=== PATIENT | male | born 1990 | race Caucasian/White ===

== ENCOUNTER 2018-05-27 07:07 | Outpatient (CLI) | payer OTHER | END 2018-05-27 07:11 | disposition home or self-care (01) | LOC: RAD 07:07 | DX: J32.8 Other chronic sinusitis (principal) ==

== ENCOUNTER 2018-12-29 20:02 | Emergency (ER) | payer OTHER ==
[~2018-12-29] VITALS: Ht 175.3 cm; Wt 73.5 kg
[2018-12-29] MEDS ORDERED: SINGULAIR 4MG4 MG (20:12)
== END 2018-12-30 00:21 | disposition home or self-care (01) ==
LOC: ER 20:02
DX: S82.091A Other fracture of right patella, initial encounter for closed fracture (principal); W18.39XA Other fall on same level, initial encounter; Y93.89 Activity, other specified; Y92.89 Other specified places as the place of occurrence of the external cause; Y99.8 Other external cause status

== ENCOUNTER 2018-12-30 12:25 | Outpatient (CLI) | payer OTHER ==
[~2018-12-30 12:25] MED LIST: SINGULAIR 4MG4 MG
== END 2018-12-30 12:40 | disposition home or self-care (01) ==
LOC: MRI 12:25
DX: M25.561 Pain in right knee (principal)
CPT/HCPCS: 73721

== ENCOUNTER 2019-01-02 11:42 | Outpatient (CLI) | payer OTHER | END 2019-01-02 13:11 | disposition home or self-care (01) | LOC: LAB 11:42 | DX: D64.89 Other specified anemias (principal); E88.89 Other specified metabolic disorders; D68.8 Other specified coagulation defects; N39.0 Urinary tract infection, site not specified; Z22.322 Carrier or suspected carrier of Methicillin resistant Staphylococcus aureus; I49.8 Other specified cardiac arrhythmias; Z76.89 Persons encountering health services in other specified circumstances ==

== ENCOUNTER 2019-01-10 10:23 | Day surgery (SDC) | payer OTHER | END 2019-01-11 06:15 | disposition home or self-care (01) | LOC: CIR.AMB 10:23 | DX: S83.511A Sprain of anterior cruciate ligament of right knee, initial encounter (principal); M23.351 Other meniscus derangements, posterior horn of lateral meniscus, right knee; M23.41 Loose body in knee, right knee; M65.861 Other synovitis and tenosynovitis, right lower leg ==

== ENCOUNTER → 2019-12-02 | Outpatient (CLI) | payer OTHER | END | disposition home or self-care (01) | LOC: RAD 10:56 | DX: S83.511D Sprain of anterior cruciate ligament of right knee, subsequent encounter (principal) ==